=== PATIENT | female | born 1945 | race Caucasian/White ===

== ENCOUNTER 2020-04-06 08:29 | Day surgery (SDC) | payer MEDICARE ==
[2020-03-30 12:34] LABS: BASOPHILS # (AUTO) 0.1 X10'3 (0-0.2); BASOPHILS % (AUTO) 0.7 % (0-1); EOSINOPHILS # (AUTO) 0.1 X10'3 (0-0.9); EOSINOPHILS % (AUTO) 1.4 % (0-6); LYMPHOCYTES # (AUTO) 1.7 X10'3 (1.1-4.8); LYMPHOCYTES % (AUTO) 21.5 % (21-51); MEAN CORPUSCULAR HEMOGLOBIN 31.1 PG (27.0-31.0); MEAN PLATELET VOLUME 9.2 FL (7.4-10.4); MONOCYTES # (AUTO) 0.5 X10'3 (0-0.9); MONOCYTES % (AUTO) 6.7 % (2-12); NEUTROPHILS # (AUTO) 5.5 X10'3 (1.8-7.7); NEUTROPHILS % (AUTO) 69.7 % (42-75); PRE OP HEMATOCRIT 43.1 % (35.0-45.0); PRE OP HEMOGLOBIN 14.3 g/dL (12.0-16.0); PRE OP PLATELET COUNT 180 X10'3 (140-440); RED BLOOD COUNT 4.59 X10'6 (4.20-5.60); RED CELL DISTRIBUTION WIDTH 13.8 % (11.5-14.5)
[2020-03-30 12:52] LABS: ALBUMIN/GLOBULIN RATIO 1.3 (1.1-1.5); ALKALINE PHOSPHATASE 70 IU/L (46-116); BLOOD UREA NITROGEN 12 MG/DL (7-18); BUN/CREATININE RATIO 16.9 (6.6-38.0); CALCIUM 9.3 MG/DL (8.5-10.1); CHLORIDE 107 MMOL/L (99-107); CREATININE 0.71 MG/DL (0.40-0.90); PRE OP ALT 20 U/L (30-65); PRE OP ANION GAP 9 (8-16); PRE OP AST 14 U/L (10-37); PRE OP BILIRUB, TOTAL 0.4 MG/DL (0.0-1.0); PRE OP GLUCOSE 99 MG/DL (70-104); PRE OP POTASSIUM 4.2 MMOL/L (3.4-5.1); PRE OP SODIUM 142 MMOL/L (135-145); TOTAL CARBON DIOXIDE 26.3 MMOL/L (24-32); TOTAL PROTEIN 7.2 G/DL (6.4-8.2); eGFR 80 ML/MIN
[2020-04-06] VITALS (11 sets, daily range): BP systolic 116–140; BP diastolic 53–69
[~2020-04-06] VITALS: Ht 154.9 cm; Wt 78.4 kg
[~2020-04-06 08:29] MED LIST: BUPIVAcaine/PF 2.5 mg/ml (0.25%) 30ml vial ONE; DOCUMENT DATE & TIME OF BETA-BLOCKER PO ONE; LIDOcaine 1% 30ml preserv. free vial ONE; LIPA1CAP8 PO; LISI-600 PO; METO25TA6 PO; OMEP40CA13 PO; PRIM50TA PO; ROSU20TA2 PO; ceFAZolin 2gm in dextrose, iso 50 ML IV ONE; famotidine 20mg tablet PO ONE; ringers solution, lacted 1,000 ML IV SCH
[2020-04-06] MEDS ORDERED: fentaNYL/PF 50MCG/1 ML 2ML syringe ONE (11:18)
[2020-04-06] MEDS ORDERED: midazolam 2 mg/2 ml injection ONE (11:18)
[2020-04-06] MEDS ORDERED: meperidine/PF 25mg/ml syringe IV PRN ×6 (11:55→12:00)
[2020-04-06] MEDS ORDERED: ondansetron/PF 4mg/2ml inj IV PRN ×2 (11:55→12:00)
[2020-04-06] MEDS ORDERED: proCHLORperazine 10 MG/2 ml inj IV PRN ×2 (11:55→12:00)
[2020-04-06] MEDS ORDERED: morphine 2 MG/ML inj. syringe IV PRN ×2 (11:55→12:00)
[2020-04-06] MEDS ORDERED: ringers solution, lacted 1,000 ML IV SCH ×2 (11:55→12:00)
[2020-04-06] MEDS ORDERED: morphine 4 MG/ML inj SYRINge IV PRN ×2 (11:55→12:00)
[2020-04-06] MEDS ORDERED: dexamethasone sod phosphate 4mg/ml inj. ONE (12:45)
[2020-04-06] MEDS ORDERED: glycopyrrolate 0.2mg/ml inj ONE (12:45)
[2020-04-06] MEDS ORDERED: propofol inj 20 ML IV ONE (12:45)
[2020-04-06] MEDS ORDERED: rocuronium 10mg/ml inj IV ONE (12:45)
[2020-04-06] MEDS ORDERED: neostigmine methylsulfate 1 MG/ML 10ml vial ONE (12:45)
[2020-04-06] MEDS ORDERED: ondansetron/PF 4mg/2ml inj ONE (12:45)
--- NOTE | 2020-04-06 13:04 | NUR ---
Received from OR via [facility] , accompanied by Anesthesiologist PRESTON and report given by Anesthesiolgist. PATIENT WITH 20GP IV IN RIGHT UE RUNNING LR AT 100. DENIES PAIN AT THIS TIME. 4 ABDOMINAL LAP SITES THAT ARE CDI. 10L MASK ON WITH 100% SATURATION. Addendum: 04/06/20 at 1322 by Cb Pereira RN, RN Amended: Links added.
[2020-04-06] MEDS ORDERED: HYDROcodone/acetaminophen 5mg/325mg tablet PO PRN (13:05)
--- NOTE | 2020-04-06 14:34 | NUR ---
PATIENT VERBALIZED UNDERSTANDING, OPPORTUNITY TO ASK QUESTIONS GIVEN AND PATIENT COMFORTABLE WITH DC. IV TAKEN OUT WITHOUT COMPLICATION. PATIENT HAS MET ALL DC CRITERIA FOR DC HOME. I HAVE REVIEWED D/C INSTRUCTIONS WITH PATIENT. TAKEN OUT VIA WHEELCHAIR WHERE PATIENT WAS TAKEN HOME WITH ALL BELONGINGS. FAMILY GAVE PATIENT TRANSPORT HOME. SPOUSE DROVE PATIENT HOME. ONE ORAL PAIN PILL ADMINISTERED PRIOR TO DC. NO DRAINAGE PRESENT AND VSS. Addendum: 04/06/20 at 1519 by Cb Pereira RN, RN Amended: Links added.
== END 2020-04-06 14:34 | disposition home or self-care (01) ==
LOC: PRE-OP 08:29 → PAS 14:34
PROVIDERS: ATTEND Surgery
DX: K40.90 Unilateral inguinal hernia, without obstruction or gangrene, not specified as recurrent (principal); Z20.822 Contact with and (suspected) exposure to COVID-19; N73.6 Female pelvic peritoneal adhesions (postinfective); K21.9 Gastro-esophageal reflux disease without esophagitis; I10 Essential (primary) hypertension; M81.0 Age-related osteoporosis without current pathological fracture; Z98.890 Other specified postprocedural states; Z90.49 Acquired absence of other specified parts of digestive tract; Z88.8 Allergy status to other drugs, medicaments and biological substances; Z91.040 Latex allergy status; Z79.899 Other long term (current) drug therapy; Z72.89 Other problems related to lifestyle; Z82.49 Family history of ischemic heart disease and other diseases of the circulatory system; Z80.0 Family history of malignant neoplasm of digestive organs
CPT/HCPCS: 36415; 49650; 80053; 82948; 85025; 87635; 93005; C1781; J1100; J2001; J2250; J2405; J2704; J2710; J3010; J3490; A4215; A4618; J7120

== ENCOUNTER 2024-05-13 05:43 | Outpatient (CLI) | payer MEDICARE ==
[~2024-05-13 05:43] MED LIST changes: -BUPIVAcaine/PF 2.5 mg/ml (0.25%) 30ml vial ONE; -DOCUMENT DATE & TIME OF BETA-BLOCKER PO ONE; -LIDOcaine 1% 30ml preserv. free vial ONE; -LISI-600 PO; +LISI20TA28 PO; +LOP25T PO; -METO25TA6 PO; -OMEP40CA13 PO; +OMEP40CA21 PO; -ceFAZolin 2gm in dextrose, iso 50 ML IV ONE; -famotidine 20mg tablet PO ONE; -ringers solution, lacted 1,000 ML IV SCH
== END 2024-05-13 23:59 | disposition home or self-care (01) ==
LOC: MRI02 05:43
PROVIDERS: ATTEND Internal Medicine
DX: S83.241A Other tear of medial meniscus, current injury, right knee, initial encounter (principal); S83.281A Other tear of lateral meniscus, current injury, right knee, initial encounter; M25.561 Pain in right knee; M71.21 Synovial cyst of popliteal space [Baker], right knee; X58.XXXA Exposure to other specified factors, initial encounter; Y93.89 Activity, other specified; Y92.89 Other specified places as the place of occurrence of the external cause; Y99.9 Unspecified external cause status; S82.141A Displaced bicondylar fracture of right tibia, initial encounter for closed fracture; M25.461 Effusion, right knee
CPT/HCPCS: 73721